=== PATIENT | male | born 2000 | race African-American/Black ===

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

== ENCOUNTER 2022-01-22 20:09 | Emergency (ER) | payer SELFPAY ==
[~2022-01-22] VITALS: Ht 185.4 cm; Wt 92.7 kg
[~2022-01-22 20:09] MED LIST: AZIT250T6 PO
[2022-01-22 20:19] VITALS: BP 162/78
--- NOTE | 2022-01-22 20:21 | PHYS DOC ---
Past Medical History Past Medical History: No Pertinent History Past Surgical History: No Surgical History Smoking Status: Never Smoker Alcohol Use: None Drug Use: None General Adult EDM: Chief Complaint: SEXUALLY TRANSMITTED DISEASE HPI: HPI: Patient is a 21 year old male who presents to the ED today stating "I have a drip" from my penis, symptoms for 2 days, he states he is concerned about STDs and would like to be tested and treated. Review of Systems: Review of Systems: Constitutional: Denies fever or chills. [] GI: Denies abdominal pain, nausea, vomiting, bloody stools or diarrhea. [] : Reports penile discharge Musculoskeletal: Denies back pain or joint pain. [] Integument: Denies rash. [] Neurologic: Denies headache, focal weakness or sensory changes. [] Psychiatric: Denies depression or anxiety. [] Heart Score: C/O Chest Pain: N/A Risk Factors: Risk Factors: DM, Current or recent (<one month) smoker, HTN, HLP, family history of CAD, obesity. Risk Scores: Score 0 - 3: 2.5% MACE over next 6 weeks - Discharge Home Score 4 - 6: 20.3% MACE over next 6 weeks - Admit for Clinical Observation Score 7 - 10: 72.7% MACE over next 6 weeks - Early Invasive Strategies Allergies: Allergies: Allergies Coded Allergies Type Severity Reaction Last Updated Verified No Known Drug Allergies 03/10/20 No Physical Exam: PE: Constitutional: Well developed, well nourished, no acute distress, non-toxic appearance. [][] Abdomen: Bowel sounds normal, soft, no tenderness, no masses, no pulsatile masses. [] Skin: Warm, dry, no erythema, no rash. [] Back: No tenderness, no CVA tenderness. [] Extremities: No tenderness, no cyanosis, no clubbing, ROM intact, no edema. [] Neurologic: Alert and oriented X 3, normal motor function, normal sensory function, no focal deficits noted. [] Psychologic: Affect normal, judgement normal, mood normal. [] EKG: EKG: [] Radiology/Procedures: Radiology/Procedures: [] Course & Med Decision Making: Course & Med Decision Making Pertinent Labs and Imaging studies reviewed. (See chart for details) This a 21-year-old male patient presenting to the ED today with STD concern. Patient was tested, results will be called to him when available if positive. In the meantime he was treated for STDs and educated on STDs prevention and treatment Elif Disclaimer: Elif Disclaimer: This electronic medical record was generated, in whole or in part, using a voice recognition dictation system. Departure Departure Impression: Primary Impression: Concern about STD in male without diagnosis Disposition: HOME / SELF CARE / HOMELESS Condition: STABLE Referrals: NO PCP (PCP) Follow-up with the health department for further STD concerns Patient Instructions: Sexually Transmitted Disease Additional Instructions: You were treated and tested for STDs. Please complete the remaining antibiotics we sent to [facility]. Please do not have intercourse for 1 week. Please use protection at all times. Please notify all your partners you are positive for STDs and ask them to seek treatment too. You will be called in the next 3 to 7 days if you have a positive STD test Scripts Doxycycline Hyclate (DOXYCYCLINE HYCLATE) 100 Mg Tablet 1 TAB PO BID, #14 TAB Prov: SERG MIRANDA APRN 01/22/22 SERG MIRANDA APRN Jan 22, 2022 20:21
[2022-01-22] MEDS ORDERED: DOXY100T PO (20:26)
[2022-01-22] MEDS ORDERED: cefTRIAXone IM 500 MG VIAL. IM ONE (20:30)
[2022-01-22] MEDS ORDERED: metroNIDAZOLE 500 MG TABLET PO ONE (20:30)
[2022-01-22] MEDS ORDERED: DOXYCYCLINE HYCLATE 100 MG TABLET PO ONE (20:30)
[2022-01-22 20:54] LABS: BACTERIA,URINE FEW /HPF (0-FEW); WBC,URINE TNTC /HPF (0-4)
== END 2022-01-22 20:44 | disposition home or self-care (01) ==
LOC: ER 20:09
DX: R36.9 Urethral discharge, unspecified (principal); Z20.2 Contact with and (suspected) exposure to infections with a predominantly sexual mode of transmission
CPT/HCPCS: 81001; 87086; 87491; 87591; 96372; 99283; J0696